=== PATIENT | male | born 1955 | race Hispanic/Latino ===

== ENCOUNTER 2020-10-10 08:27 | Emergency (ER) | payer OTHER ==
[2020-10-10 08:42] VITALS: BP 128/80
[2020-10-10 09:26] LABS: Basophils % (Auto) 0.3 % (0.0-1.8); Eosinophils % (Auto) 0.3 % (0.0-4.3); Hematocrit 40.9 % (35.5-45.6); Hemoglobin 14.3 gm/dl (11.8-15.2); Lymphocytes # (Auto) 0.9 K/mm3 (1.2-5.4); Lymphocytes % (Auto) 6.4 % (13.4-35.0); Mean Corpuscular HGB Conc 35 % (32-34); Mean Corpuscular Volume 95 fl (84-94); Monocytes # (Auto) 0.5 K/mm3 (0.0-0.8); Monocytes % (Auto) 3.9 % (0.0-7.3); Platelet Count 258 K/mm3 (140-440); Red Blood Count 4.29 M/mm3 (3.65-5.03); Red Cell Distribution Width 14.3 % (13.2-15.2)
[2020-10-10 09:42] LABS: Alanine Aminotransferase 10 units/L (7-56); Albumin 4.2 g/dL (3.9-5); Blood Urea Nitrogen 13 mg/dL (9-20); Calcium 9.4 mg/dL (8.4-10.2); Hemolysis Index 3
[2020-10-10 09:44] LABS: BUN/Creatinine Ratio 22
--- NOTE | 2020-10-10 10:59 | Emergency Department Report ---
ED Shortness of Breath HPI - General Chief Complaint: Dyspnea/Respdistress Stated Complaint: DIFF BREATHING Source: patient Mode of arrival: Ambulatory Limitations: No Limitations - History of Present Illness Initial Comments: 65-year-old male presents to the emergency room reporting he was having difficulty breathing since last night. Patient states that he is on in termittent oxygen and started back with his oxygen of 2 L. Patient states that exacerbating factors are being outside walking in the heat and has improved since he has been sitting here in the cold. Patient denies any respiratory distress at this time. He states he feels much better after being inside with his 2 L of oxygen. Patient denies any fever no cough no runny nose no chest pain. MD Complaint: shortness of breath Onset/Timin -: days(s) Pain Scale: 1 Consistency: intermittent, now resolved Improves With: oxygen, rest, other (being indoors.) Worsens With: exertion, other Known History Of: COPD, asthma Context: occured during exertion Associated Symptoms: denies other symptoms - Related Data Home Oxygen Therapy: Yes Home Oxygen Amount: 2 Liters Allergies Allergy/AdvReac Type Severity Reaction Status Date / Time No Known Allergies Allergy Unverified 10/10/20 08:44 ED Review of Systems ROS: Stated complaint: DIFF BREATHING Other details as noted in HPI Comment: All other systems reviewed and negative ED Past Medical Hx - Past Medical History Previous Medical History?: Yes Hx Hypertension: Yes Hx COPD: Yes - Surgical History Past Surgical History?: Yes Additional Surgical History: HIP, HERNIA, NECK ED Physical Exam - General Limitations: No Limitations General appearance: alert, in no apparent distress - Head Head exam: Present: atraumatic, normocephalic - Eye Eye exam: Present: normal appearance - ENT ENT exam: Present: mucous membranes moist, normal external ear exam - Neck Neck exam: Present: normal inspection, full ROM - Respiratory Respiratory exam: Present: normal lung sounds bilaterally. Absent: respiratory distress, wheezes, chest wall tenderness, accessory muscle use - Cardiovascular Cardiovascular Exam: Present: regular rate - Back Exam Back exam: Present: normal inspection, full ROM - Neurological Exam Neurological exam: Present: alert, oriented X3, CN II-XII intact, normal gait - Psychiatric Psychiatric exam: Present: normal affect, normal mood - Skin Skin exam: Present: warm, dry, intact, normal color. Absent: rash ED Course Vital Signs 10/10/20 08:38 Temperature 98.5 F Pulse Rate 94 H Respiratory 20 Rate Blood Pressure 128/80 [Left] O2 Sat by Pulse 96 Oximetry ED Medical Decision Making - Lab Data Result diagrams: 10/10/20 09:07 10/10/20 09:07 - Radiology Data Radiology results: report reviewed [facility] [address] [place] [address] XRay Report Signed Patient: PADMA DELEON MR#: [id number] : 1955 Acct:[id number] Age/Sex: 65 / M ADM Date: 10/10/20 Loc: ED Attending Dr: Ordering Physician: MIRZA MAN DO Date of Service: 10/10/20 Procedure(s): XR chest routine 2V Accession Number(s): [id number] cc: MIRZA MAN DO Fluoro Time In Minutes: CHEST 2 VIEWS INDICATION: Dyspnea. COMPARISON: None FINDINGS: Support devices: None. Heart: Within normal limits. Lungs/pleura: Advanced emphysematous changes are evident. No evidence for suspicious mass, infiltrate, pleural fluid or pneumothorax. Additional findings: None. IMPRESSION: Emphysema. Signer Name: Robert Calhoun Jr, MD Signed: 10/10/2020 12:37 PM Workstation Name: [id number] Transcribed By: TTR Dictated By: ROBERT CALHOUN JR, MD Electronically Authenticated By: ROBERT CALHOUN JR, MD Signed Date/Time: 10/10/20 123 DD/ 36 TD/TT: - Medical Decision Making 65-year-old male presents to the emergency room reporting he was having difficulty breathing since last night. Patient states that he is on intermittent oxygen and started back with his oxygen of 2 L. Patient states that exacerbating factors are being outside walking in the heat and has improved since he has been sitting here in the cold. Patient denies any respiratory distress at this time. He states he feels much better after being inside with his 2 L of oxygen. Patient denies any fever no cough no runny nose no chest pain. Patient symptoms have resolved since being in the cool. I discussed with patient that the air quality is poor and that he needs to stay in use his inhalers as needed continue with his oxygen and [facility]. Patient verbalized understanding Critical care attestation.: If time is entered above; I have spent that time in minutes in the direct care of this critically ill patient, excluding procedure time. 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 Continue with your oxygen and your albuterol inhalers. Referrals: PRIMARY CAREMD [Primary Care Provider] - 3-5 Days LUCIANO TAVAREZ MD [Staff Physician] - 3-5 Days Time of Disposition: 12:54
--- NOTE | 2020-10-10 12:41 | XRay Report ---
CHEST 2 VIEWS INDICATION: Dyspnea. COMPARISON: None FINDINGS: Support devices: None. Heart: Within normal limits. Lungs/pleura: Advanced emphysematous changes are evident. No evidence for suspicious mass, infiltrat e, pleural fluid or pneumothorax. Additional findings: None. IMPRESSION: Emphysema. Signer Name: Robert Calhoun Jr, MD Signed: 10/10/2020 12:37 PM Workstation Name: [id number]
== END 2020-10-10 12:55 | disposition home or self-care (01) ==
LOC: ED 08:27
DX: J43.9 Emphysema, unspecified (principal); J45.909 Unspecified asthma, uncomplicated; I10 Essential (primary) hypertension; Z98.890 Other specified postprocedural states
CPT/HCPCS: 36415; 71046; 80053; 84484; 85025; 99283